=== PATIENT | female | born 1950 | race Caucasian/White ===

== ENCOUNTER 2016-07-05 22:50 | Emergency (ER) | payer MEDICARE, OTHER ==
--- NOTE | ~2016-07-05 | CR94 ---
[facility] A Service of [facility] RADIOLOGY TEXT RESULTS PATIENT: BIANCA SHEN LOCATION: [facility] : 52 UNIT #: [id number] AGE: [address]: Alejandro Zarco MD SEX: F ORDER DR: [id number] [facility] [address] [place], [place] [address] [id number] MR#: [id number] Acc #: [id number] NAME: BIANCA SHEN : 1950 SEX: F STUDY DATE/TIME: 07/05/2016 22:32 UNIT: [facility] ROOM: STUDY DESCRIPTION: CR Elbow Min 3 Views Rt Attending Physician: Alejandro Zarco M.D. Ordering Physician: Ed Jeffrey Jimenez M.D. Primary Care Physician: Primary Care Physician No MEDICAL IMAGING REPORT This report is preliminary unless electronic signature is present EXAM Right elbow, 3 views COMPARISON None INDICATIONS 66-year-old female with right elbow pain after falling today. FINDINGS Elbow is anatomically aligned. There is no evidence of acute fracture. Chronic ossicle seen at the coronoid process. No elbow effusion. There is enthesopathy at the lateral epicondyle. There is also enthesopathy of the medial epicondyle. IMPRESSION No evidence of acute fracture or dislocation of the right elbow. If symptoms persist, consider repeat radiographs in 7-10 days. Dictated by... Walker Lofton M.D. THIS IS AN ELECTRONICALLY VERIFIED REPORT Walker Lofton M.D. at 07/06/2016 4:20 PM KRISTEN/gray TD: 07/06/2016 02:29 JOB #: [id number] MEDICAL IMAGING REPORT Page 1 of 1 COPY
== END 2016-07-06 00:05 | disposition home or self-care (01) ==
LOC: CED 22:50
DX: S53.401A Unspecified sprain of right elbow, initial encounter (principal); I10 Essential (primary) hypertension; E11.9 Type 2 diabetes mellitus without complications; Z88.0 Allergy status to penicillin; Z88.2 Allergy status to sulfonamides; W18.09XA Striking against other object with subsequent fall, initial encounter; Y92.481 Parking lot as the place of occurrence of the external cause
CPT/HCPCS: 73080; 99283